=== PATIENT | female | born 1990 | race Caucasian/White ===

== ENCOUNTER 2017-05-25 22:03 | Emergency (ER) | payer SELFPAY ==
[2017-05-25] MEDS ORDERED: Zofran 4 MG/2 ML VIAL IV ONE ×2 (22:44→23:48)
[2017-05-25] MEDS ORDERED: SUBLIMAZE 100 MCG/2 ML IV ONE (22:44)
[2017-05-25] MEDS ORDERED: Sodium Chloride 0.9% 1000 ML 1,000 ML IV STA (22:44)
--- NOTE | 2017-05-25 22:50 | ERPHSYRPT ---
- History of Present Illness Time Seen by Provider: 05/25/17 22:38 Historian: patient Exam Limitations: no limitations Patient Subjective Stated Complaint: Pt sts diarrhea x 2 this morning and then vomiting this afternoon approx 15 times. Unable to keep anything down. Also sts chills. Pt sts pain in abd 03/19. Triage Nursing Assessment: Pt alert, oriented, answers all questions appropriately. Skin pale, warm, dry. Resps non-labored. Pt speaking in full sentences without difficulty. Physician History: THIS AM PT HAD "TIGHT" LOWER MID ABDOMINAL PAIN WITH 2 EPISODES OF DIARRHEA. THIS AFTERNOON PT VOMITED ABOUT 15 TIMES WITHOUT BLOOD WITH CHILLS, DIAPHORESIS AND SHARP LOWER MID ABDOMINAL PAIN. PT ALSO C/O COUGH FOR THE PAST 2 DAYS. Allergies/Adverse Reactions: acetaminophen [From Tylenol-Codeine #3] Adverse Reaction (Intermediate, Verified 05/25/17 22:29) codeine [From Tylenol-Codeine #3] Adverse Reaction (Intermediate, Verified 05/25 22:29) promethazine [From Phenergan] Adverse Reaction (Intermediate, Verified 05/25/17 22:29) Vomiting Home Medications: Norgestimate-Ethinyl Estradiol [Tri-Sprintec] 1 each PO DAILY 05/25/17 [History] Immunizations Up to Date: No - Review of Systems Constitutional: Chills, No Fever Respiratory: Cough Abdominal/Gastrointestinal: Abdominal Pain, Vomiting, Diarrhea Endocrine: Excessive Sweating All Other Systems: Reviewed and Negative - Social History Smoking Status: Current every day smoker Exposure to second hand smoke: No Patient Lives Alone: No Significant Family History: no pertinent family hx - Female History Hx Last Menstrual Period: 2.5 weeks ago - Nursing Vital Signs Nursing Vital Signs: Initial Vital Signs Temperature 98.1 F 05/25/17 22:28 Pulse Rate 56 L 05/25/17 22:28 Respiratory Rate 16 05/25/17 22:28 Blood Pressure 136/75 05/25/17 22:28 O2 Sat by Pulse Oximetry 99 05/25/17 22:28 Pain Scale Pain Intensity 8 - Physical Exam General Appearance: alert Eye Exam: PERRL/EOMI Ears, Nose, Throat Exam: TMs normal, pharynx normal Neck Exam: normal inspection Respiratory Exam: lungs clear Cardiovascular Exam: normal heart sounds Gastrointestinal/Abdomen Exam: soft, tenderness (MILD MID ABDOMINAL TENDERNESS) , other (B.S. MILDLY HYPERACTIVE AND NORMOTONIC) Back Exam: normal range of motion Extremity Exam: normal inspection, No pedal edema Neurologic Exam: alert, cooperative Skin Exam: warm, dry SpO2 Interpretation: normal SpO2: 99 Oxygen Delivery: Room Air - Course Nursing assessment & vital signs reviewed: Yes - CT Exams Abdomen/Pelvis CT Interpretation: Tele-radiologist Report (NO ACUTE FINDINGS) Ordered Tests: Active Orders 24 hr Category Date Time Status IV Insertion STAT Care 05/25/17 22:44 Active ABDOMEN AND PELVIS W/0 CONTRAS [CT] Stat Exams 05/25/17 22:45 Taken AMYLASE Stat Lab 05/25/17 23:03 Completed CBC W DIFF Stat Lab 05/25/17 23:03 Completed CMP Stat Lab 05/25/17 23:03 Completed HCG QUALITATIVE,SERUM Stat Lab 05/25/17 23:03 Completed LIPASE Stat Lab 05/25/17 23:03 Completed Medication Summary Discontinued Medications Generic Name Dose Route Start Last Admin Trade Name Freq PRN Reason Stop Dose Admin Fentanyl Citrate 50 mcg 05/25/17 22:44 05/25/17 23:05 Sublimaze 100 Mcg/2 Ml IV 05/25/17 22:45 50 mcg STAT ONE Administration Fentanyl Citrate Confirm 05/25/17 22:57 Sublimaze 100 Mcg/2 Ml Administered 05/25/17 22:58 Dose 100 mcg .ROUTE .STK-MED ONE Fentanyl Citrate 50 mcg 05/26/17 00:40 05/26/17 00:50 Sublimaze 100 Mcg/2 Ml IV 05/26/17 00:41 50 mcg STAT ONE Administration Fentanyl Citrate Confirm 05/26/17 00:47 Sublimaze 100 Mcg/2 Ml Administered 05/26/17 00:48 Dose 100 mcg .ROUTE .STK-MED ONE Sodium Chloride 1,000 mls @ 999 mls/hr 05/25/17 22:44 05/25/17 23:06 Sodium Chloride 0.9% 1000 Ml IV 05/25/17 23:44 999 mls/hr .Q1H1M STA Administration Sodium Chloride Confirm 05/25/17 22:57 Sodium Chloride 0.9% 1000 Ml Administered 05/25/17 22:58 Dose 1,000 mls @ ud .ROUTE .STK-MED ONE Ondansetron HCl 4 mg 05/25/17 22:44 05/25/17 23:05 Zofran 4 Mg/2 Ml Vial IV 05/25/17 22:45 4 mg STAT ONE Administration Ondansetron HCl Confirm 05/25/17 22:57 Zofran 4 Mg/2 Ml Vial Administered 05/25/17 22:58 Dose 4 mg .ROUTE .STK-MED ONE Ondansetron HCl 4 mg 05/25/17 23:48 05/26/17 00:02 Zofran 4 Mg/2 Ml Vial IV 05/25/17 23:49 4 mg STAT ONE Administration Ondansetron HCl Confirm 05/26/17 00:02 Zofran 4 Mg/2 Ml Vial Administered 05/26/17 00:03 Dose 4 mg .ROUTE .STK-MED ONE Ondansetron HCl Confirm 05/26/17 00:49 Zofran 4 Mg/2 Ml Vial Administered 05/26/17 00:50 Dose 4 mg .ROUTE .STK-MED ONE Ondansetron HCl 4 mg 05/26/17 00:51 05/26/17 00:52 Zofran 4 Mg/2 Ml Vial IV 05/26/17 00:52 4 mg STAT ONE Administration Lab/Rad Data: Laboratory Result Diagrams 05/25/17 23:03 05/25/17 23:03 Laboratory Results 05/25/17 05/25/17 05/25/17 Range/Units 23:03 23:03 23:03 WBC 9.0 (4.0-10.5) K/mm3 RBC 5.93 H (4.1-5.4) M/mm3 Hgb 14.8 (12.0-16.0) gm/dl Hct 44.8 (35-47) % MCV 75.5 L (78-100) fl MCH 24.9 L (26-32) pg MCHC 33.0 (32-36) g/dl RDW 16.1 H (11.5-14.0) % Plt Count 230 (150-450) K/mm3 MPV 10.8 H (6-9.5) fl Gran % 89.8 H (36.0-66.0) % Lymphocytes % 8.0 L (24.0-44.0) % Monocytes % 2.2 (0.0-12.0) % Eosinophils % 0.0 (0.00-5.0) % Basophils % 0.0 (0.0-0.4) % Basophils # 0 (0-0.4) Sodium 138 (136-145) mEq/L Potassium 4.0 (3.5-5.1) mEq/L Chloride 101 (98-107) mEq/L Carbon Dioxide 20.1 L (21-32) mEq/L Anion Gap 20.8 H (5-15) MEQ/L BUN 10 (9-20) mg/dL Creatinine 0.78 (0.55-1.30) mg/dl Estimated GFR > 60 ML/MIN Glucose 101 (70-110) MG/DL Calcium 9.5 (8.5-10.1) mg/dL Total Bilirubin 0.50 (0.2-1.0) mg/dL AST 30 (15-37) U/L ALT 34 (12-78) U/L Alkaline Phosphatase 84 (46-116) U/L Serum Total Protein 8.7 H (6.4-8.2) gm/dL Albumin 4.4 (3.4-5.0) g/dL Amylase 23 L (25-115) U/L Lipase 68 L (73-393) U/L Serum , Qual NEGATIVE (Negative) Ur Collection Type Urine Color (YELLOW) Urine Appearance (CLEAR) Urine pH (5-6) Ur Specific Ferguson (1.005-1.025) Urine Protein (Negative) Urine Ketones (NEGATIVE) Urine Blood (0-5) Isaak/ul Urine Nitrite (NEGATIVE) Urine Bilirubin (NEGATIVE) Urine Urobilinogen (0-1) mg/dL Ur Leukocyte Esterase (NEGATIVE) Ur Epithelial Cells (FEW) /HPF Urine Bacteria (NEGATIVE) /HPF Urine Mucus (NEGATIVE) /HPF Urine Culture Reflexed (NO) Urine Glucose (NEGATIVE) mg/dL Urine Opiates Level (NEGATIVE) Ur Methadone (NEGATIVE) Urine Barbiturates (NEGATIVE) Ur Phencyclidine (PCP) (NEGATIVE) Urine Amphetamine (NEGATIVE) U Benzodiazepine Level (NEGATIVE) Urine Cocaine (NEGATIVE) Urine Marijuana (THC) (NEGATIVE) Specimen Received 05/25/17 05/25/17 Range/Units 00:55 00:55 WBC (4.0-10.5) K/mm3 RBC (4.1-5.4) M/mm3 Hgb (12.0-16.0) gm/dl Hct (35-47) % MCV (78-100) fl MCH (26-32) pg MCHC (32-36) g/dl RDW (11.5-14.0) % Plt Count (150-450) K/mm3 MPV (6-9.5) fl Gran % (36.0-66.0) % Lymphocytes % (24.0-44.0) % Monocytes % (0.0-12.0) % Eosinophils % (0.00-5.0) % Basophils % (0.0-0.4) % Basophils # (0-0.4) Sodium (136-145) mEq/L Potassium (3.5-5.1) mEq/L Chloride (98-107) mEq/L Carbon Dioxide (21-32) mEq/L Anion Gap (5-15) MEQ/L BUN (9-20) mg/dL Creatinine (0.55-1.30) mg/dl Estimated GFR ML/MIN Glucose (70-110) MG/DL Calcium (8.5-10.1) mg/dL Total Bilirubin (0.2-1.0) mg/dL AST (15-37) U/L ALT (12-78) U/L Alkaline Phosphatase (46-116) U/L Serum Total Protein (6.4-8.2) gm/dL Albumin (3.4-5.0) g/dL Amylase (25-115) U/L Lipase (73-393) U/L Serum , Qual (Negative) Ur Collection Type CLEAN CATCH Urine Color YELLOW (YELLOW) Urine Appearance CLOUDY (CLEAR) Urine pH 5.0 (5-6) Ur Specific Ferguson 1.025 (1.005-1.025) Urine Protein TRACE (Negative) Urine Ketones LARGE (NEGATIVE) Urine Blood NEGATIVE (0-5) Isaak/ul Urine Nitrite NEGATIVE (NEGATIVE) Urine Bilirubin NEGATIVE (NEGATIVE) Urine Urobilinogen NORMAL (0-1) mg/dL Ur Leukocyte Esterase NEGATIVE (NEGATIVE) Ur Epithelial Cells RARE (FEW) /HPF Urine Bacteria RARE (NEGATIVE) /HPF Urine Mucus SLIGHT (NEGATIVE) /HPF Urine Culture Reflexed NO (NO) Urine Glucose NEGATIVE (NEGATIVE) mg/dL Urine Opiates Level POS. (NEGATIVE) Ur Methadone NEG. (NEGATIVE) Urine Barbiturates NEG. (NEGATIVE) Ur Phencyclidine (PCP) NEG. (NEGATIVE) Urine Amphetamine POS. (NEGATIVE) U Benzodiazepine Level POS. (NEGATIVE) Urine Cocaine POS. (NEGATIVE) Urine Marijuana (THC) POS. (NEGATIVE) Specimen Received [id number] - Departure Time of Disposition: 02:33 Departure Disposition: Home Clinical Impression: ABDOMINAL PAIN, MULTIPLE DRUG USE, VOMITING, DIARRHEA Condition: Stable Critical Care Time: No Referrals: VENITA AYALA [Primary Care Provider] - Instructions: Abdominal Pain-Adult, Vomiting -- Adult, Diarrhea and Traveler's Diarrhea -- Adult Additional Instructions: FOLLOW UP WITH PRIVATE DOCTOR TOMORROW. Prescriptions: Ondansetron [Zofran Odt] 4 mg PO Q4H PRN PRN #14 tab.rapdis PRN Reason: Nausea/Vomiting
[2017-05-25] MEDS ORDERED: Zofran 4 MG/2 ML VIAL ONE (22:57)
[2017-05-25] MEDS ORDERED: Sodium Chloride 0.9% 1000 ML 1,000 ML ONE (22:57)
[2017-05-25] MEDS ORDERED: SUBLIMAZE 100 MCG/2 ML ONE (22:57)
[2017-05-25 23:25] LABS: ALBUMIN 4.4 g/dL (3.4-5.0); ALKALINE PHOSPHATASE 84 U/L (46-116); ANION GAP 20.8 MEQ/L (5-15); BLOOD UREA NITROGEN 10 mg/dL (9-20); CHLORIDE 101 mEq/L (98-107); Carbon Dioxide 20.1 mEq/L (21-32); Glucose 101 MG/DL (70-110); Granulocytes % 89.8 % (36.0-66.0); LIPASE 68 U/L (73-393); Mean Cell Volume 75.5 fl (78-100); Mean Platelet Volume 10.8 fl (6-9.5); Monocytes % 2.2 % (0.0-12.0); Platelet Count 230 K/mm3 (150-450); Red Blood Count 5.93 M/mm3 (4.1-5.4); Red Cell Distribution Width 16.1 % (11.5-14.0); SGOT/AST 30 U/L (15-37); SGPT/ALT 34 U/L (12-78); SODIUM 138 mEq/L (136-145); Total Protein 8.7 gm/dL (6.4-8.2)
[2017-05-25 23:29] LABS: Mean Corpuscular Hemoglobin 24.9 pg (26-32)
[2017-05-26] MEDS ORDERED: Zofran 4 MG/2 ML VIAL ONE ×2 (00:02→00:49)
[2017-05-26] MEDS ORDERED: SUBLIMAZE 100 MCG/2 ML IV ONE (00:40)
[2017-05-26] MEDS ORDERED: SUBLIMAZE 100 MCG/2 ML ONE (00:47)
[2017-05-26] MEDS ORDERED: Zofran 4 MG/2 ML VIAL IV ONE (00:51)
[2017-05-26 01:08] LABS: Bilirubin NEGATIVE (NEGATIVE); Collection Type CLEAN CATCH; Glucose NEGATIVE (NEGATIVE); Leukocyte Esterase NEGATIVE (NEGATIVE)
[2017-05-26 01:09] LABS: Blood NEGATIVE Ery/ul (0-5); COMPLETE URINE MICROSCOPIC? YES; Epithelial Cells RARE /HPF (FEW); Mucus SLIGHT /HPF (NEGATIVE)
[2017-05-26 01:10] LABS: ADD URINE CULTURE? NO (NO); Bacteria RARE /HPF (NEGATIVE)
[2017-05-26] MEDS ORDERED: ZOFRAN ODT 4 MG PO ONE (02:34)
[2017-05-26] MEDS ORDERED: ZOFRAN ODT 4 MG ONE (02:40)
[2017-05-26 02:45] VITALS: BP 137/69; PULSE 58; O2SAT 97
--- NOTE | 2017-05-26 08:57 | XRAY ---
Indication: Nausea, vomiting, diarrhea. Multiple contiguous axial images obtained through the abdomen and pelvis without contrast as ordered. Comparison: May 27, 2011. Lung bases are clear. Heart is not enlarged. Stomach is fluid distended. Noncontrasted bowel loops appear nonobstructed. Previous appendectomy. No free fluid/air. Gallbladder appears contracted with now intraluminal sludge/gravel. No abnormal biliary distention. Remaining liver, pancreas, spleen, adrenal glands, kidneys, ureters, bladder, uterus, and aorta appear unremarkable for noncontrast exam. Osseous structures intact again with lumbosacral Junction degenerative changes. Impression: 1. Contracted gallbladder with now intraluminal sludge/gravel. Gallbladder sonogram may yield further information if clinically warranted. 2. Remaining CT abdomen/pelvis without contrast exam is negative. Comment: Preliminary interpretation was made by [facility] who reports cholecystectomy which is incorrect. I gave telephone report to Dr. Cuenca in the ER at 0900 hrs. on May 26, 2017. CT DI 15.85
== END 2017-05-26 03:00 | disposition home or self-care (01) ==
LOC: ED 22:03
DX: R10.9 Unspecified abdominal pain (principal); R11.10 Vomiting, unspecified; R19.7 Diarrhea, unspecified; F15.90 Other stimulant use, unspecified, uncomplicated
CPT/HCPCS: 36000; 36415; 74176; 80053; 80307; 81000; 82150; 83690; 84703; 85025; 96360; 96374; 96375; 96376; 99285; J2405; J3010; Q0162

== ENCOUNTER 2017-05-27 11:35 | Emergency (ER) | payer OTHER ==
--- NOTE | 2017-05-27 14:00 | ERPHSYRPT ---
- History of Present Illness Time Seen by Provider: 05/27/17 13:52 Historian: patient Exam Limitations: no limitations Patient Subjective Stated Complaint: PT REPORTS MULTIPLE EPISODES OF VOMITING FOR SEVERAL DAYS-STATES SHE WAS TX COUPLE DAYS AGO BY ED-HAS BEEN TAKING THE ZOFRAN BUT IS STILL VOMITING-VOMITING INCREASES AFTER ATTEMPTING TO EAT-DENIES DIARRHEA-REPORTA ABD PAIN IN LOW ABD Triage Nursing Assessment: PT PINK WARM ET [id number] ALL QUESTIONS CORRECTLY-RESP EASY ET NONLABORED-PT MOVING ALL EXTREMTIITES WITH EASE Physician History: The patient is a 26-year-old female with her complaining of abdominal pain and vomiting for 3 days. She was seen in this ER 2 days ago for the same complaint. I am reviewing the abdomen and pelvis CT scan which shows a contracted gallbladder with intraluminal sludge/gravel. Gallbladder sonogram a yield further information. The patient states she is still not able to keep anything down. She still complains of abdominal pain. She has not followed up with her local physician. She has been taking Zofran but that is not helping anymore. Timing/Duration: day(s) (3) Activities at Onset: none Quality: aching Abdominal Pain Onset Location: generalized abdomen Pain Radiation: no radiation Severity of Pain-Max: severe Severity of Pain-Current: severe Modifying Factors: Improves With: other (zofran) Associated Symptoms: nausea, vomiting Previous symptoms: same symptoms as today Allergies/Adverse Reactions: acetaminophen [From Tylenol-Codeine #3] Adverse Reaction (Intermediate, Verified 05/27/17 11:48) codeine [From Tylenol-Codeine #3] Adverse Reaction (Intermediate, Verified 05/27 11:48) promethazine [From Phenergan] Adverse Reaction (Intermediate, Verified 05/27/17 11:48) Vomiting Home Medications: Norgestimate-Ethinyl Estradiol [Tri-Sprintec] 1 each PO DAILY 05/25/17 [History] Hx Tetanus, Diphtheria Vaccination/Date Given: No Hx Influenza Vaccination/Date Given: No Hx Pneumococcal Vaccination/Date Given: No Immunizations Up to Date: Yes - Review of Systems Constitutional: No Fever, No Chills Eyes: No Symptoms Ears, Nose, & Throat: No Symptoms Respiratory: No Cough, No Dyspnea Cardiac: No Chest Pain, No Edema, No Syncope Abdominal/Gastrointestinal: Abdominal Pain, Nausea, Vomiting Genitourinary Symptoms: No Dysuria Musculoskeletal: No Back Pain, No Neck Pain Skin: No Rash Neurological: No Dizziness, No Focal Weakness, No Sensory Changes Psychological: No Symptoms Endocrine: No Symptoms Hematologic/Lymphatic: No Symptoms Immunological/Allergic: No Symptoms All Other Systems: Reviewed and Negative - Past Medical History Pertinent Past Medical History: Yes Other Medical History: hx c-diff, abdominal migraines - Past Surgical History Past Surgical History: Yes Gastrointestinal: Appendectomy - Social History Smoking Status: Current every day smoker How long have you smoked: YRS Exposure to second hand smoke: No Drug Use: none Patient Lives Alone: No Significant Family History: no pertinent family hx - Female History Hx Last Menstrual Period: YESTERDAY - Nursing Vital Signs Nursing Vital Signs: Initial Vital Signs Temperature 98.2 F 05/27/17 11:50 Pulse Rate 68 05/27/17 11:50 Respiratory Rate 20 05/27/17 11:50 Blood Pressure 120/74 05/27/17 11:50 O2 Sat by Pulse Oximetry 97 05/27/17 11:50 Pain Scale Pain Intensity 8 - Physical Exam General Appearance: moderate distress Eye Exam: PERRL/EOMI, eyes nml inspection Ears, Nose, Throat Exam: normal ENT inspection, pharynx normal, moist mucous membranes Neck Exam: normal inspection, non-tender, supple, full range of motion Respiratory Exam: normal breath sounds, lungs clear, No respiratory distress, No wheezing Cardiovascular Exam: regular rate/rhythm, normal heart sounds Gastrointestinal/Abdomen Exam: tenderness (RUQ) Pelvic Exam: not done Rectal Exam: not done Back Exam: normal inspection, normal range of motion, No CVA tenderness, No vertebral tenderness Extremity Exam: normal inspection, normal range of motion, pelvis stable Neurologic Exam: alert, oriented x 3, cooperative, normal mood/affect, nml cerebellar function, sensation nml, No motor deficits SpO2 Interpretation: normal SpO2: 97 Oxygen Delivery: Room Air - Radiology Ultrasound Exam Gallbladder Ultrasound: tele radiology report (Ultrasound of the gallbladder is significant for gallbladder sludge with negative cholelithiasis and cholecystitis per Dr. Lucio.) Ordered Tests: Active Orders 24 hr Category Date Time Status IV Insertion STAT Care 05/27/17 14:08 Active GALLBLADDER [US] Stat Exams 05/27/17 14:08 Completed CBC W DIFF Stat Lab 05/27/17 14:30 Completed CMP Stat Lab 05/27/17 14:30 Completed CULTURE,URINE Stat Lab 05/27/17 14:08 Received HCG QUALITATIVE,SERUM Stat Lab 05/27/17 14:30 Completed LIPASE Stat Lab 05/27/17 14:30 Completed Lactic Acid Stat Lab 05/27/17 14:35 Completed UA W/ MICROSCOPIC Stat Lab 05/27/17 14:08 Completed Urine Triage Profile Stat Lab 05/27/17 14:08 Completed Medication Summary Discontinued Medications Generic Name Dose Route Start Last Admin Trade Name Onelia PRN Reason Stop Dose Admin Sodium Chloride 1,000 mls @ 999 mls/hr 05/27/17 14:08 05/27/17 14:35 Sodium Chloride 0.9% 1000 Ml IV 05/27/17 15:08 999 mls/hr .Q1H1M STA Administration Sodium Chloride Confirm 05/27/17 14:33 Sodium Chloride 0.9% 1000 Ml Administered 05/27/17 14:34 Dose 1,000 mls @ ud .ROUTE .STK-MED ONE Ondansetron HCl 4 mg 05/27/17 14:08 05/27/17 14:38 Zofran 4 Mg/2 Ml Vial IV 05/27/17 14:09 4 mg STAT ONE Administration Ondansetron HCl Confirm 05/27/17 14:33 Zofran 4 Mg/2 Ml Vial Administered 05/27/17 14:34 Dose 4 mg .ROUTE .STK-MED ONE Promethazine HCl 25 mg 05/27/17 14:08 05/27/17 14:32 Phenergan 25 Mg Inj IM 05/27/17 14:09 Not Given STAT ONE Lab/Rad Data: Laboratory Result Diagrams 05/27/17 14:30 05/27/17 14:30 Laboratory Results 05/27/17 05/27/17 05/27/17 Range/Units 14:35 14:30 14:30 WBC (4.0-10.5) K/mm3 RBC (4.1-5.4) M/mm3 Hgb (12.0-16.0) gm/dl Hct (35-47) % MCV (78-100) fl MCH (26-32) pg MCHC (32-36) g/dl RDW (11.5-14.0) % Plt Count (150-450) K/mm3 MPV (6-9.5) fl Gran % (36.0-66.0) % Lymphocytes % (24.0-44.0) % Monocytes % (0.0-12.0) % Eosinophils % (0.00-5.0) % Basophils % (0.0-0.4) % Basophils # (0-0.4) Sodium 137 (136-145) mEq/L Potassium 3.5 (3.5-5.1) mEq/L Chloride 100 (98-107) mEq/L Carbon Dioxide 21.5 (21-32) mEq/L Anion Gap 19.0 H (5-15) MEQ/L BUN 15 (9-20) mg/dL Creatinine 0.84 (0.55-1.30) mg/dl Estimated GFR > 60 ML/MIN Glucose 84 (70-110) MG/DL Lactic Acid 1.4 (0.4-2.0) Calcium 8.9 (8.5-10.1) mg/dL Total Bilirubin 0.40 (0.2-1.0) mg/dL AST 13 L (15-37) U/L ALT 24 (12-78) U/L Alkaline Phosphatase 63 (46-116) U/L Serum Total Protein 7.5 (6.4-8.2) gm/dL Albumin 3.8 (3.4-5.0) g/dL Lipase 91 (73-393) U/L Serum , Qual NEGATIVE (Negative) Ur Collection Type Urine Color (YELLOW) Urine Appearance (CLEAR) Urine pH (5-6) Ur Specific Kenton (1.005-1.025) Urine Protein (Negative) Urine Ketones (NEGATIVE) Urine Blood (0-5) Isaak/ul Urine Nitrite (NEGATIVE) Urine Bilirubin (NEGATIVE) Urine Urobilinogen (0-1) mg/dL Ur Leukocyte Esterase (NEGATIVE) Urine Microscopic RBC (0-2) /HPF Urine Microscopic WBC (0-5) /HPF Urine Bacteria (NEGATIVE) /HPF Urine Mucus (NEGATIVE) /HPF Urine Culture Reflexed (NO) Urine Glucose (NEGATIVE) mg/dL Urine Opiates Level (NEGATIVE) Ur Methadone (NEGATIVE) Urine Barbiturates (NEGATIVE) Ur Phencyclidine (PCP) (NEGATIVE) Urine Amphetamine (NEGATIVE) U Benzodiazepine Level (NEGATIVE) Urine Cocaine (NEGATIVE) Urine Marijuana (THC) (NEGATIVE) Specimen Received 05/27/17 05/27/17 05/27/17 Range/Units 14:30 14:08 14:08 WBC 7.6 (4.0-10.5) K/mm3 RBC 5.34 (4.1-5.4) M/mm3 Hgb 13.2 (12.0-16.0) gm/dl Hct 40.1 (35-47) % MCV 75.1 L (78-100) fl MCH 24.7 L (26-32) pg MCHC 32.9 (32-36) g/dl RDW 15.8 H (11.5-14.0) % Plt Count 254 (150-450) K/mm3 MPV 11.1 H (6-9.5) fl Gran % 69.0 H (36.0-66.0) % Lymphocytes % 23.2 L (24.0-44.0) % Monocytes % 7.7 (0.0-12.0) % Eosinophils % 0.0 (0.00-5.0) % Basophils % 0.1 (0.0-0.4) % Basophils # 0.01 (0-0.4) Sodium (136-145) mEq/L Potassium (3.5-5.1) mEq/L Chloride (98-107) mEq/L Carbon Dioxide (21-32) mEq/L Anion Gap (5-15) MEQ/L BUN (9-20) mg/dL Creatinine (0.55-1.30) mg/dl Estimated GFR ML/MIN Glucose (70-110) MG/DL Lactic Acid (0.4-2.0) Calcium (8.5-10.1) mg/dL Total Bilirubin (0.2-1.0) mg/dL AST (15-37) U/L ALT (12-78) U/L Alkaline Phosphatase (46-116) U/L Serum Total Protein (6.4-8.2) gm/dL Albumin (3.4-5.0) g/dL Lipase (73-393) U/L Serum , Qual (Negative) Ur Collection Type VOID Urine Color YELLOW (YELLOW) Urine Appearance CLEAR (CLEAR) Urine pH 5.0 (5-6) Ur Specific Kenton 1.020 (1.005-1.025) Urine Protein 1+ (Negative) Urine Ketones MODERATE (NEGATIVE) Urine Blood 250 (0-5) Isaak/ul Urine Nitrite NEGATIVE (NEGATIVE) Urine Bilirubin SMALL (NEGATIVE) Urine Urobilinogen NORMAL (0-1) mg/dL Ur Leukocyte Esterase TRACE (NEGATIVE) Urine Microscopic RBC 0-2 (0-2) /HPF Urine Microscopic WBC 2-5 (0-5) /HPF Urine Bacteria FEW (NEGATIVE) /HPF Urine Mucus SLIGHT (NEGATIVE) /HPF Urine Culture Reflexed YES (NO) Urine Glucose NEGATIVE (NEGATIVE) mg/dL Urine Opiates Level POS. (NEGATIVE) Ur Methadone NEG. (NEGATIVE) Urine Barbiturates NEG. (NEGATIVE) Ur Phencyclidine (PCP) NEG. (NEGATIVE) Urine Amphetamine NEG. (NEGATIVE) U Benzodiazepine Level POS. (NEGATIVE) Urine Cocaine POS. (NEGATIVE) Urine Marijuana (THC) POS. (NEGATIVE) Specimen Received 05/27/17 1515 - Progress Progress: improved Counseled pt/family regarding: lab results, diagnosis, rad results - Departure Time of Disposition: 15:53 Departure Disposition: Home Clinical Impression: Abdominal pain, Nausea, Drug abuse Condition: Stable Critical Care Time: No Referrals: VENITA AYALA [Primary Care Provider] - Additional Instructions: You have abdominal pain, nausea, and drug abuse. You were given Zofran 4 mg and fluids by IV in the ER. Take Zofran 4 mg ODT every 6 hours as needed for nausea. Prescriptions: Ondansetron ODT 4 MG [Zofran Odt 4 mg] 1 tab PO Q6H PRN PRN #10 tab.rapdis PRN Reason: Nausea/Vomiting
[2017-05-27] MEDS ORDERED: Phenergan 25 MG INJ IM ONE (14:08)
[2017-05-27] MEDS ORDERED: Sodium Chloride 0.9% 1000 ML 1,000 ML IV STA (14:08)
[2017-05-27] MEDS ORDERED: Zofran 4 MG/2 ML VIAL IV ONE (14:08)
[2017-05-27] MEDS ORDERED: Zofran 4 MG/2 ML VIAL ONE (14:33)
[2017-05-27] MEDS ORDERED: Sodium Chloride 0.9% 1000 ML 1,000 ML ONE (14:33)
[2017-05-27 14:46] LABS: BASOPHIL % 0.1 % (0.0-0.4); Lymphocytes % 23.2 % (24.0-44.0); Mean Cell Volume 75.1 fl (78-100); Mean Corpuscular Hemoglobin 24.7 pg (26-32); Mean Platelet Volume 11.1 fl (6-9.5); Monocytes % 7.7 % (0.0-12.0); Platelet Count 254 K/mm3 (150-450); Red Blood Count 5.34 M/mm3 (4.1-5.4); Red Cell Distribution Width 15.8 % (11.5-14.0); White Blood Count 7.6 K/mm3 (4.0-10.5)
[2017-05-27 15:04] LABS: ALBUMIN 3.8 g/dL (3.4-5.0); ALKALINE PHOSPHATASE 63 U/L (46-116); BLOOD UREA NITROGEN 15 mg/dL (9-20); CHLORIDE 100 mEq/L (98-107); Carbon Dioxide 21.5 mEq/L (21-32); Glucose 84 MG/DL (70-110); LIPASE 91 U/L (73-393); Potassium 3.5 mEq/L (3.5-5.1); SGOT/AST 13 U/L (15-37); SGPT/ALT 24 U/L (12-78); SODIUM 137 mEq/L (136-145); Total Protein 7.5 gm/dL (6.4-8.2)
--- NOTE | 2017-05-27 15:13 | XRAY ---
Indication: Vomiting. Gallbladder sludge on recent noncontrast CT. Two-dimensional right upper quadrant abdominal sonogram performed. Comparison: May 30, 2011. Gallbladder normally distended with minimal dependent sludge. No gallstones, wall thickening, or pericholecystic fluid. Common bile duct measures 2 mm. No intrahepatic biliary distention. In the right lobe of the liver, there is a 2.5 cm focus of round echogenic mass, possibly hemangioma in this demographic. No other solid/cystic mass or ascites. Remaining visualized portions of the pancreas and right kidney appear sonographically normal. Right kidney measures 9.8 cm in length. Impression: 1. Gallbladder sludge. Negative cholelithiasis/cholecystitis. 2. 2.5 cm round echogenic mass in the right lobe of the liver possibly hemangioma in this demographic. No abnormality on recent noncontrasted CT abdomen study. CT liver using hemangioma protocol may yield further information if clinically warranted.
[2017-05-27 15:21] LABS: ADD URINE CULTURE? YES (NO); Bilirubin SMALL (NEGATIVE); Blood 250 Ery/ul (0-5); COMPLETE URINE MICROSCOPIC? YES; Collection Type VOID; Glucose NEGATIVE (NEGATIVE); Leukocyte Esterase TRACE (NEGATIVE)
[2017-05-27 15:27] LABS: Bacteria FEW /HPF (NEGATIVE); Mucus SLIGHT /HPF (NEGATIVE)
[2017-05-27 16:03] VITALS: BP 141/81; PULSE 55; O2SAT 99
== END 2017-05-27 16:08 | disposition home or self-care (01) ==
LOC: ED 11:35
DX: R10.9 Unspecified abdominal pain (principal); R11.0 Nausea; F19.10 Other psychoactive substance abuse, uncomplicated
CPT/HCPCS: 36000; 36415; 76705; 80053; 80307; 81000; 83605; 83690; 84703; 85025; 87086; 96360; 96374; 99284; J2405